=== PATIENT | male | born 1970 | race American Indian/Alaskan Native ===

== ENCOUNTER 2019-09-03 22:05 | Emergency (ER) | payer OTHER ==
[2019-09-03 23:19] VITALS: BP 187/102
[2019-09-03] MEDS ORDERED: traMADol 50 MG TAB PO ONE (23:29)
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
== END 2019-09-04 00:55 | disposition home or self-care (01) ==
LOC: ED 22:05
DX: S16.1XXA Strain of muscle, fascia and tendon at neck level, initial encounter (principal); I10 Essential (primary) hypertension; E11.9 Type 2 diabetes mellitus without complications; F17.200 Nicotine dependence, unspecified, uncomplicated; Z98.890 Other specified postprocedural states; Z88.8 Allergy status to other drugs, medicaments and biological substances; Z79.899 Other long term (current) drug therapy; V49.49XA Driver injured in collision with other motor vehicles in traffic accident, initial encounter; Y92.89 Other specified places as the place of occurrence of the external cause; Y93.89 Activity, other specified; Y99.8 Other external cause status
CPT/HCPCS: 72040; 99283

== ENCOUNTER 2020-08-29 20:12 | Emergency (ER) | payer OTHER ==
[2020-08-29 20:45] VITALS: BP 186/106
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
== END 2020-08-29 21:45 | disposition home or self-care (01) ==
LOC: ED 20:12
DX: S29.012A Strain of muscle and tendon of back wall of thorax, initial encounter (principal); S16.1XXA Strain of muscle, fascia and tendon at neck level, initial encounter; S00.03XA Contusion of scalp, initial encounter; I10 Essential (primary) hypertension; E11.9 Type 2 diabetes mellitus without complications; Z79.899 Other long term (current) drug therapy; Z88.8 Allergy status to other drugs, medicaments and biological substances; V49.49XA Driver injured in collision with other motor vehicles in traffic accident, initial encounter; Y93.89 Activity, other specified; Y92.488 Other paved roadways as the place of occurrence of the external cause; Y99.8 Other external cause status
CPT/HCPCS: 99281

== ENCOUNTER 2020-10-26 12:38 | Emergency (ER) | payer SELFPAY ==
[2020-10-26 13:11] VITALS: BP 198/106
[2020-10-26] MEDS ORDERED: KETOROLAC 60 MG/2 ML INJ IM ONE (13:27)
--- NOTE | 2020-10-26 14:32 | XRay Report ---
CERVICAL SPINE 3 VIEWS INDICATION / CLINICAL INFORMATION: neck pain. COMPARISON: 09/03/2019 FINDINGS: VERTEBRAE: No acute fracture. No significant malalignment. DISC SPACES / FACET JOINTS:Mild intervertebral disc space narrowing at C5-6 and C6-7 with moderate an terior osteophytosis. Findings are unchanged. Minimal facet degenerative changes are noted. PARASPINAL SOFT TISSUES:No significant abnormality. ADDITIONAL FINDINGS: None. Signer Name: Emmanuel Bravo MD Signed: 10/26/2020 2:27 PM Workstation Name: [id number]
--- NOTE | 2020-10-26 15:18 | Emergency Department Report ---
ED Neck Pain/Injury HPI - General Chief Complaint: Back Pain/Injury Stated Complaint: LT SIDE BACK/NECK PAIN Time Seen by Provider: 10/26/20 13:11 Mode of arrival: Ambulatory Limitations: No Limitations - History of Present Illness Initial Comments: This is a 50-year-old male nontoxic, well nourished in appearance, no acute signs of distress presents to the ED with c/o of acute on chronic upper back pain. Patient stated that the past few days he was mowing the lawn and developed pain. Patient stated has radiation to left upper extremity. Patient denies any trauma. Patient worse with movement and resolved with rest. Denies any swelling to arm. Denies any bladder or bowel instability. Patient denies any urinary symptoms. Denies any fever, chills, nausea, vomiting, headache, stiff neck, chest pain or shortness of breath. Patient denies any numbness or tingling. Denies any allergies. Stated past medical history of hypertension which he sees primary care doctor for. MD Complaint: upper back pain -: days(s) Place: street/outdoors Radiation: left upper extremity Severity: mild Severity scale (0 -10): 3 Quality: aching Consistency: intermittent Improves With: immobilization Worsens With: movement of extremity Associated Symptoms: none. denies: headache, fever, numbness, tingling, w eakness, vertigo, difficulty walking, swollen glands, difficulty swallowing, nausea, vomiting Treatments Prior to Arrival: none - Related Data Home Medications Medication Instructions Recorded Confirmed Last Taken lisinopriL [Lisinopril] 10 mg PO DAILY 07/14/14 11/07/14 11/06/14 09:00 Previous Rx's Medication Instructions Recorded Last Taken Type Clindamycin [Clindamycin CAP] 300 mg PO Q6H #28 capsule 11/07/14 Unknown Rx oxyCODONE /ACETAMINOPHEN [Percocet 1 tab PO Q4-6H PRN #25 tablet 11/07/14 Unknown Rx 5/325] predniSONE [Deltasone] 20 mg PO TID #12 tab 11/07/14 Unknown Rx Cyclobenzaprine [Flexeril] 10 mg PO TID PRN #15 tablet 12/04/15 Unknown Rx Ibuprofen [Motrin 800 MG tab] 800 mg PO Q8HR PRN #30 tablet 12/04/15 Unknown Rx Cyclobenzaprine [Flexeril] 10 mg PO BID PRN #20 tablet 09/04/19 Unknown Rx Methyl Salicylate/Menthol [[place] 1 applicatio TP QID PRN #1 tube 09/04/19 Unknown Rx [place] Active 16%-8% Gel] Naproxen 500 mg PO BID PRN #30 tablet 09/04/19 Unknown Rx Lidocaine [Lidoderm] 1 each TP BID #20 adh..patch 08/29/20 Unknown Rx Naproxen 500 mg PO BID #20 tablet 08/29/20 Unknown Rx Cyclobenzaprine [Flexeril] 10 mg PO QHS PRN #10 tablet 10/26/20 Unknown Rx Naproxen 500 mg PO Q12H PRN #12 tablet 10/26/20 Unknown Rx Allergies Allergy/AdvReac Type Severity Reaction Status Date / Time lactose Allergy Diarrhea Verified 10/26/20 13:10 ED Review of Systems ROS: Stated complaint: LT SIDE BACK/NECK PAIN Other details as noted in HPI Comment: All other systems reviewed and negative Constitutional: denies: chills, fever Eyes: denies: eye pain, eye discharge, vision change ENT: denies: ear pain, throat pain Respiratory: denies: cough, shortness of breath, wheezing Cardiovascular: denies: chest pain, palpitations Endocrine: no symptoms reported Gastrointestinal: denies: abdominal pain, nausea, diarrhea Genitourinary: denies: urgency, dysuria Musculoskeletal: denies: back pain, joint swelling, arthralgia Skin: denies: rash, lesions Neurological: denies: headache, weakness, paresthesias Psychiatric: denies: anxiety, depression Hematological/Lymphatic: denies: easy bleeding, easy bruising ED Past Medical Hx - Past Medical History Hx Hypertension: Yes Hx Diabetes: Yes - Surgical History Additional Surgical History: LEFT ANKLE - Social History Smoking Status: Current Every Day Smoker Substance Use Type: None - Medications Home Medications: Home Medications Medication Instructions Recorded Confirmed Last Taken Type lisinopriL [Lisinopril] 10 mg PO DAILY 07/14/14 11/07/14 11/06/14 09:00 History Clindamycin [Clindamycin CAP] 300 mg PO Q6H #28 capsule 11/07/14 Unknown Rx oxyCODONE /ACETAMINOPHEN [Percocet 1 tab PO Q4-6H PRN #25 tablet 11/07/14 Unknown Rx 5/325] predniSONE [Deltasone] 20 mg PO TID #12 tab 11/07/14 Unknown Rx Cyclobenzaprine [Flexeril] 10 mg PO TID PRN #15 tablet 12/04/15 Unknown Rx Ibuprofen [Motrin 800 MG tab] 800 mg PO Q8HR PRN #30 tablet 12/04/15 Unknown Rx Cyclobenzaprine [Flexeril] 10 mg PO BID PRN #20 tablet 09/04/19 Unknown Rx Methyl Salicylate/Menthol [[place] 1 applicatio TP QID PRN #1 tube 09/04/19 Unknown Rx [place] Active 16%-8% Gel] Naproxen 500 mg PO BID PRN #30 tablet 09/04/19 Unknown Rx Lidocaine [Lidoderm] 1 each TP BID #20 adh..patch 08/29/20 Unknown Rx Naproxen 500 mg PO BID #20 tablet 08/29/20 Unknown Rx Cyclobenzaprine [Flexeril] 10 mg PO QHS PRN #10 tablet 10/26/20 Unknown Rx Naproxen 500 mg PO Q12H PRN #12 tablet 10/26/20 Unknown Rx ED Physical Exam - General Limitations: No Limitations General appearance: alert, in no apparent distress - Head Head exam: Present: atraumatic, normocephalic - Eye Eye exam: Present: normal appearance - Neck Neck exam: Present: normal inspection, full ROM. Absent: tenderness, meningismus, lymphadenopathy - Respiratory Respiratory exam: Absent: respiratory distress - Cardiovascular Cardiovascular Exam: Present: regular rate - Extremities Exam Extremities exam: Present: normal inspection, full ROM, normal capillary refill. Absent: tenderness - Back Exam Back exam: Present: normal inspection, full ROM, tenderness, paraspinal tenderness (Cervical paraspinal). Absent: CVA tenderness (R), CVA tenderness (L), muscle spasm, vertebral tenderness, rash noted - Neurological Exam Neurological exam: Present: alert, oriented X3, normal gait - Psychiatric Psychiatric exam: Present: normal affect, normal mood - Skin Skin exam: Present: warm, dry, intact, normal color. Absent: rash - Other Other exam information: Neurovascular within normal limits. No swelling to upper extremity. ED Course Vital Signs 10/26/20 13:10 Temperature 98.2 F Pulse Rate 92 H Respiratory 14 Rate Blood Pressure 198/106 O2 Sat by Pulse 99 Oximetry - Reevaluation(s) Reevaluation #1: 10/26/20 15:19 Patient is speaking in full sentences with no signs of distress noted. ED Medical Decision Making - Radiology Data [facility] [address] [place] [address] XRay Report Signed Patient: WILDA JOSE R#: [id number] : 1970 Acct:[id number] Age/Sex: 50 / M ADM Date: 10/26/20 Loc: ED Attending Dr: Ordering Physician: HAI MAURICIO NP Date of Service: 10/26/20 Procedure(s): XR spine cervical 2-3V Accession Number(s): [id number] cc: HAI MAURICIO NP Fluoro Time In Minutes: CERVICAL SPINE 3 VIEWS INDICATION / CLINICAL INFORMATION: neck pain. COMPARISON: 09/03/2019 FINDINGS: VERTEBRAE: No acute fracture. No significant malalignment. DISC SPACES / FACET JOINTS:Mild intervertebral disc space narrowing at C5-6 and C6-7 with moderate anterior osteophytosis. Findings are unchanged. Minimal facet degenerative changes are noted. PARASPINAL SOFT TISSUES:No significant abnormality. ADDITIONAL FINDINGS: None. Signer Name: Dhaval Bravo MD Signed: 10/26/2020 2:27 PM Workstation Name: [id number] Transcribed By: Dictated By: DHAVAL BRAVO III Electronically Authenticated By: DHAVAL BRAVO III Signed Date/Time: 10/26/201426 DD/ 25 TD/TT: - Medical Decision Making This is a 50-year-old male that presents with upper back strain. Patient is s table was examined by me. There is no spinal tenderness. There is no cauda equina syndrome during examination. No bladder or bowel instability. Patient received Toradol 60 mg IM in the ED which stated that his symptoms has resolved and subsided. Patient is discharged with muscle relaxant and naproxen. Patient was instructed not to operate any machinery while taking muscle relaxant as they cause her drowsiness. Patient was referred to Follow-up with a primary care doctor in 3-5 days or if symptoms worsen and continue return to emergency room as soon as possible. At time of discharge, the patient does not seem toxic or ill in appearance. No acute signs of distress noted. Patient agrees to discharge treatment plan of care. No further questions noted by the patient. This chart is dictated with using [employer] Dictation Program Critical care attestation.: If time is entered above; I have spent that time in minutes in the direct care of this critically ill patient, excluding procedure time. ED Disposition Clinical Impression: Cervical muscle strain Qualifiers: Encounter type: initial encounter Qualified Code(s): S16.1XXA - Strain of muscle, fascia and tendon at neck level, initial encounter Degenerative arthritis of cervical spine Qualifiers: Spinal osteoarthritis complication: unspecified spinal osteoarthritis Qualified Code(s): M47.812 - Spondylosis without myelopathy or radiculopathy, cervical region Disposition: TO HOME OR SELFCARE Is pt being admited?: No Does the pt Need Aspirin: No Condition: Stable Instructions: RICE Therapy for Routine Care of Injuries, [id number], Muscle Strain, [id number], Cyclobenzaprine tablets Additional Instructions: Follow-up with your primary care doctor in 3-5 days or if symptoms worsen such as bladder or bowel stability, chest pain, short of breath, numbness or tingling sensation in extremities, headache, dizziness, visual changes, nausea vomiting, or abdominal pain, return back to emergency room as was possible. Take naproxen and Flexeril as prescribed. Do not operate heavy machinery while taking Flexeril due to sedation Prescriptions: Cyclobenzaprine [Flexeril] 10 mg PO QHS PRN #10 tablet PRN Reason: Muscle Spasm Naproxen 500 mg PO Q12H PRN #12 tablet PRN Reason: Pain , Severe (7-10) Referrals: PRIMARY MD FRANTZ [Primary Care Provider] - 3-5 Days YUSRA CARRIZALES MD [Staff Physician] - 3-5 Days Forms: Work/School Release Form(ED) Time of Disposition: 15:21
== END 2020-10-26 16:15 | disposition home or self-care (01) ==
LOC: ED 12:38
DX: S16.1XXA Strain of muscle, fascia and tendon at neck level, initial encounter (principal); M47.812 Spondylosis without myelopathy or radiculopathy, cervical region; M54.6 Pain in thoracic spine; G89.29 Other chronic pain; I10 Essential (primary) hypertension; E11.9 Type 2 diabetes mellitus without complications; F17.200 Nicotine dependence, unspecified, uncomplicated; Z98.890 Other specified postprocedural states; Z88.8 Allergy status to other drugs, medicaments and biological substances; Z79.899 Other long term (current) drug therapy; X58.XXXA Exposure to other specified factors, initial encounter; Y93.89 Activity, other specified; Y92.89 Other specified places as the place of occurrence of the external cause; Y99.8 Other external cause status
CPT/HCPCS: 72040; 96372; 99283; J1885

== ENCOUNTER 2020-11-11 16:37 | Emergency (ER) | payer SELFPAY ==
[2020-11-11] MEDS ORDERED: traMADol 50 MG TAB PO ONE (20:03)
[2020-11-11] MEDS ORDERED: KETOROLAC 60 MG/2 ML INJ IM ONE (20:03)
--- NOTE | 2020-11-11 20:08 | Emergency Department Report ---
ED General Adult HPI - General Chief complaint: Extremity Problem,Nontraumatic Stated complaint: SHARP PAIN IN LT ARM Time Seen by Provider: 11/11/20 19:54 Source: patient Mode of arrival: Ambulatory Limitations: No Limitations - History of Present Illness Initial comments: Patient is a 50-year-old male presents emergency room complaints of left-sided n ramona pain, left shoulder pain that radiates down to his left arm. He states occasionally he feels tingling in his left arm. Patient states that he is not able to lay on that side. He denies any fall or injury. He denies any complete numbness, weakness, fever, neck stiffness, headache, vision changes, speech disturbance, gait disturbance. He is amatory without difficulty. Patient was evaluated in the emergency department on 10/26/20 and had a x-ray cervical spine which showed: DISC SPACES / FACET JOINTS:Mild intervertebral disc space narrowing at C5-6 and C6-7 with moderate anterior osteophytosis. Findings are unchanged. Minimal facet degenerative changes are noted. Patient was given prescription for medications. He has not followed up with a primary care doctor or orthopedic doctor. Presents emergency room due to continued pain. Past medical history of diabetes and hypertension. No allergies to medications. - Related Data Home Medications Medication Instructions Recorded Confirmed Last Taken lisinopriL [Lisinopril] 10 mg PO DAILY 07/14/14 11/07/14 11/06/14 09:00 Previous Rx's Medication Instructions Recorded Last Taken Type Clindamycin [Clindamycin CAP] 300 mg PO Q6H #28 capsule 11/07/14 Unknown Rx oxyCODONE /ACETAMINOPHEN [Percocet 1 tab PO Q4-6H PRN #25 tablet 11/07/14 Unknown Rx 5/325] predniSONE [Deltasone] 20 mg PO TID #12 tab 11/07/14 Unknown Rx Cyclobenzaprine [Flexeril] 10 mg PO TID PRN #15 tablet 12/04/15 Unknown Rx Ibuprofen [Motrin 800 MG tab] 800 mg PO Q8HR PRN #30 tablet 12/04/15 Unknown Rx Cyclobenzaprine [Flexeril] 10 mg PO BID PRN #20 tablet 09/04/19 Unknown Rx Methyl Salicylate/Menthol [[place] 1 applicatio TP QID PRN #1 tube 09/04/19 Unknown Rx [place] Active 16%-8% Gel] Naproxen 500 mg PO BID PRN #30 tablet 09/04/19 Unknown Rx Lidocaine [Lidoderm] 1 each TP BID #20 adh..patch 08/29/20 Unknown Rx Naproxen 500 mg PO BID #20 tablet 08/29/20 Unknown Rx Cyclobenzaprine [Flexeril] 10 mg PO QHS PRN #10 tablet 10/26/20 Unknown Rx Naproxen 500 mg PO Q12H PRN #12 tablet 10/26/20 Unknown Rx Menthol/Camphor [[place] 1 applicatio TP BID #18 oint...g. 11/11/20 Unknown Rx Ointment] traMADoL [Ultram 50 MG tab] 50 mg PO Q6HR PRN #10 tablet 11/11/20 Unknown Rx Allergies Allergy/AdvReac Type Severity Reaction Status Date / Time lactose Allergy Diarrhea Verified 10/26/20 13:10 ED Review of Systems ROS: Stated complaint: SHARP PAIN IN LT ARM Other details as noted in HPI Comment: All other systems reviewed and negative ED Past Medical Hx - Past Medical History Previous Medical History?: Yes Hx Hypertension: Yes Hx Diabetes: Yes - Surgical History Past Surgical History?: Yes Additional Surgical History: LEFT ANKLE - Social History Smoking Status: Current Every Day Smoker Substance Use Type: None - Medications Home Medications: Home Medications Medication Instructions Recorded Confirmed Last Taken Type lisinopriL [Lisinopril] 10 mg PO DAILY 07/14/14 11/07/14 11/06/14 09:00 History Clindamycin [Clindamycin CAP] 300 mg PO Q6H #28 capsule 11/07/14 Unknown Rx oxyCODONE /ACETAMINOPHEN [Percocet 1 tab PO Q4-6H PRN #25 tablet 11/07/14 Unknown Rx 5/325] predniSONE [Deltasone] 20 mg PO TID #12 tab 11/07/14 Unknown Rx Cyclobenzaprine [Flexeril] 10 mg PO TID PRN #15 tablet 12/04/15 Unknown Rx Ibuprofen [Motrin 800 MG tab] 800 mg PO Q8HR PRN #30 tablet 12/04/15 Unknown Rx Cyclobenzaprine [Flexeril] 10 mg PO BID PRN #20 tablet 09/04/19 Unknown Rx Methyl Salicylate/Menthol [[place] 1 applicatio TP QID PRN #1 tube 09/04/19 Unknown Rx [place] Active 16%-8% Gel] Naproxen 500 mg PO BID PRN #30 tablet 09/04/19 Unknown Rx Lidocaine [Lidoderm] 1 each TP BID #20 adh..patch 08/29/20 Unknown Rx Naproxen 500 mg PO BID #20 tablet 08/29/20 Unknown Rx Cyclobenzaprine [Flexeril] 10 mg PO QHS PRN #10 tablet 10/26/20 Unknown Rx Naproxen 500 mg PO Q12H PRN #12 tablet 10/26/20 Unknown Rx Menthol/Camphor [[place] 1 applicatio TP BID #18 oint...g. 11/11/20 Unknown Rx Ointment] traMADoL [Ultram 50 MG tab] 50 mg PO Q6HR PRN #10 tablet 11/11/20 Unknown Rx ED Physical Exam - General Limitations: No Limitations General appearance: alert, in no apparent distress - Head Head exam: Present: atraumatic, normocephalic - Eye Eye exam: Present: normal appearance - ENT ENT exam: Present: mucous membranes moist - Neck Neck exam: Present: normal inspection, tenderness (left sided C-spine paraspinal muscular ttp, no midline C-spine ttp, no step offs, no deformities ), full ROM. Absent: meningismus - Respiratory Respiratory exam: Present: normal lung sounds bilaterally. Absent: respiratory distress, wheezes, rales, rhonchi, stridor, chest wall tenderness, accessory muscle use, decreased breath sounds, prolonged expiratory - Cardiovascular Cardiovascular Exam: Present: regular rate, normal rhythm, normal heart sounds. Absent: systolic murmur, diastolic murmur, rubs, gallop - Extremities Exam Extremities exam: Present: other (left sided trapezius ttp, no bony ttp of the LUE, FROM of the LUE, no sulcus sign, clavicles are equal, no clavicular ttp, no edema, no deformity, no skin changes, neurovascularly intact ) - Neurological Exam Neurological exam: Present: alert, oriented X3, CN II-XII intact, normal gait. Absent: motor sensory deficit - Psychiatric Psychiatric exam: Present: normal affect, normal mood - Skin Skin exam: Present: warm, dry, intact ED Course Vital Signs 11/11/20 11/11/20 18:02 20:45 Temperature 98.0 F Pulse Rate 86 88 Respiratory 20 17 Rate Blood Pressure 162/90 Blood Pressure 185/98 [Right] O2 Sat by Pulse 100 100 Oximetry ED Medical Decision Making - Medical Decision Making Patient is a 50-year-old male presents emergency room complaints of left-sided neck pain, left shoulder pain that radiates down to his left arm. He states occasionally he feels tingling in his left arm. Patient states that he is not able to lay on that side. He denies any fall or injury. He denies any complete numbness, weakness, fever, neck stiffness, headache, vision changes, speech disturbance, gait disturbance. He is amatory without difficulty. Patient was evaluated in the emergency department on 10/26/20 and had a x-ray cervical spine which showed: DISC SPACES / FACET JOINTS:Mild intervertebral disc space narrowing at C5-6 and C6-7 with moderate anterior osteophytosis. Findings are unchanged. Minimal facet degenerative changes are noted. Patient was given prescription for medications. He has not followed up with a primary care doctor or orthopedic doctor. Presents emergency room due to continued pain. Past medical history of diabetes and hypertension. No allergies to medications. Vitals are stable. On exam:left sided C-spine paraspinal muscular ttp, no midline C-spine ttp, no step offs, no deformities, left sided trapezius ttp, no bony ttp of the LUE, FROM of the LUE, no sulcus sign, clavicles are equal, no clavicular ttp, no edema, no deformity, no skin changes, neurovascularly intact, no focal neuro deficits. Symptoms likely related to cervical radiculopathy versus muscle strain versus shoulder impingement. Patient given medication while in the emergency department as he did not drive with improvement of symptoms. Patient given prescriptions. Discussed the importance of follow-up with patient. Discussed return precautions. Advised patient May alternate Tylenol or ibuprofen as needed for discomfort. May use [place] balm ointment. May use ice pack, heating pad, rest, epsom salt bath. Follow-up with your [facility] doctor. Follow-up with orthopedic/spine doctor. Return to emergency room for new or worsening symptoms. Critical care attestation.: If time is entered above; I have spent that time in minutes in the direct care of this critically ill patient, excluding procedure time. ED Disposition Clinical Impression: Left shoulder pain, Neck pain on left side, Paresthesia of left arm Disposition: DC-01 TO HOME OR SELFCARE Is pt being admited?: No Does the pt Need Aspirin: No Condition: Stable Instructions: Cervical Radiculopathy, Shoulder Impingement Syndrome Additional Instructions: May alternate Tylenol or ibuprofen as needed for discomfort. May use [place] balm ointment. May use ice pack, heating pad, rest, epsom salt bath. Follow-up with your primary care doctor. Follow-up with orthopedic/spine doctor. Return to emergency room for new or worsening symptoms. Prescriptions: Menthol/Camphor [[place] Ointment] 1 applicatio TP BID #18 oint...g. traMADoL [Ultram 50 MG tab] 50 mg PO Q6HR PRN #10 tablet PRN Reason: Pain , Severe (7-10) Referrals: [facility] [Provider Group] - 2-3 Days CHRISTINA VIRGEN II, MD [Staff Physician] - 2-3 Days YUSRA CARRIZALES MD [Staff Physician] - 2-3 Days [facility] [Provider Group] - 2-3 Days Forms: Work/School Release Form(ED) Time of Disposition: 20:12 Print Language: FRISIAN
[2020-11-11 22:34] VITALS: BP 185/98
== END 2020-11-11 20:45 | disposition home or self-care (01) ==
LOC: ED 16:37
DX: M25.512 Pain in left shoulder (principal); M54.2 Cervicalgia; R20.0 Anesthesia of skin; R20.2 Paresthesia of skin; I10 Essential (primary) hypertension; E11.9 Type 2 diabetes mellitus without complications; F17.200 Nicotine dependence, unspecified, uncomplicated; Z79.899 Other long term (current) drug therapy; Z88.8 Allergy status to other drugs, medicaments and biological substances
CPT/HCPCS: 96372; 99282; J1885

== ENCOUNTER 2021-07-02 16:32 | Emergency (ER) | payer SELFPAY ==
[2021-07-02] MEDS ORDERED: SODIUM CHLORIDE 0.9% 1000 ML 1,000 ML IV ONE (17:16)
[2021-07-02] MEDS ORDERED: ONDANSETRON 4 MG/2 ML INJ IV ONE (17:18)
--- NOTE | 2021-07-02 17:20 | Event Note ---
ED Screening Note ED Screening Note: 51 yo diabetic comes to ER with severe abd pain hunched over gagging htn on admit HR 90's did not check bg started Tuesday p eating out home rx metformin pmh obese diabetic htn This initial assessment/diagnostic orders/clinical plan/treatment(s) is/are subject to change based on patients health status, clinical progression and re- assessment by fellow clinical providers in the ED. Further treatment and workup at subsequent clinical providers discretion. Patient/guardian urged not to elope from the ED as their condition may be serious if not clinically assessed and managed. Initial orders include: ro atypical acs labs ua bg ordered fluids/zofran Vital Signs 07/02/21 16:56 Temperature 97.7 F Pulse Rate 92 H Respiratory 16 Rate Blood Pressure 183/122 [Left] O2 Sat by Pulse 98 Oximetry
[2021-07-02 18:10] LABS: Basophils % (Auto) 0.2 % (0.0-1.8); Eosinophils # (Auto) 0.1 K/mm3 (0.0-0.4); Eosinophils % (Auto) 1.8 % (0.0-4.3); Hematocrit 49.2 % (35.5-45.6); Hemoglobin 16.1 gm/dl (11.8-15.2); Lymphocytes # (Auto) 1.5 K/mm3 (1.2-5.4); Lymphocytes % (Auto) 33.7 % (13.4-35.0); Mean Corpuscular HGB Conc 33 % (32-34); Mean Corpuscular Volume 86 fl (84-94); Monocytes # (Auto) 0.5 K/mm3 (0.0-0.8); Monocytes % (Auto) 11.8 % (0.0-7.3); Platelet Count 291 K/mm3 (140-440); Red Blood Count 5.73 M/mm3 (3.65-5.03); Red Cell Distribution Width 13.6 % (13.2-15.2)
[2021-07-02 18:29] LABS: Alanine Aminotransferase 14 units/L (7-56); Albumin 3.9 g/dL (3.9-5); BUN/Creatinine Ratio 15; Blood Urea Nitrogen 16 mg/dL (9-20); Calcium 8.8 mg/dL (8.4-10.2); Hemolysis Index 14
[2021-07-02 18:33] LABS: Bilirubin,Direct < 0.2 mg/dL (0-0.2)
[2021-07-02] MEDS ORDERED: LACTATED RINGERS 1,000 ML IV ONE (18:34)
[2021-07-02] MEDS ORDERED: METOCLOPRAMIDE 10 MG/2 ML INJ IV ONE (18:34)
[2021-07-02 20:48] LABS: Bilirubin,Urine NEG (Negative); Blood,Urine NEG (Negative); Color,Urine Yellow (Yellow); Hyaline Casts,Urine 5 /LPF; Mucus,Urine FEW /HPF; Urobilinogen,Urine < 2.0 mg/dL (<2.0)
--- NOTE | 2021-07-02 21:18 | Emergency Department Report ---
ED Abdominal Pain HPI - General Chief Complaint: Abdominal Pain Stated Complaint: ABD PAIN/DIARRHEA Time Seen by Provider: 07/02/21 17:16 Source: patient Mode of arrival: Ambulatory Limitations: No Limitations - History of Present Illness Initial Comments: Patient presents with abdominal pain associate with nausea, vomiting, and diarrhea. Tuesday, he ate a chicken sandwich. He immediately became sick that night with nausea, vomiting, and diarrhea. He started having abdominal cramps. He states that Tuesday was slightly better. He was still having upset stomach. Today, his symptoms seem to worsen and the pain became more severe. It was centralized. It was sharp and stabbing and cramping. There is ongoing nausea. He states diarrhea has gotten better. He denies hematemesis or coffee-ground emesis. There is no melenic stool. He has had no sick contacts. He has not been on antibiotics. Patient denies travel out of the country. - Related Data Home Medications Medication Instructions Recorded Confirmed Last Taken lisinopriL [Lisinopril] 10 mg PO DAILY 07/14/14 11/07/14 11/06/14 09:00 Previous Rx's Medication Instructions Recorded Last Taken Type Hyoscyamine Subl [Levsin Sl 0.125 0.125 mg SL Q6HR PRN #20 tab 07/02/21 Unknown Rx TAB] Ondansetron [Zofran ODT TAB] 8 mg PO Q8HR PRN #15 tab.rapdis 07/02/21 Unknown Rx Allergies Allergy/AdvReac Type Severity Reaction Status Date / Time lactose Allergy Diarrhea Verified 10/26/20 13:10 ED Review of Systems ROS: Stated complaint: ABD PAIN/DIARRHEA Other details as noted in HPI Comment: All other systems reviewed and negative Constitutional: denies: fever Eyes: denies: vision change ENT: denies: epistaxis Respiratory: denies: cough Cardiovascular: denies: chest pain Endocrine: denies: unexplained weight loss Gastrointestinal: as per HPI Genitourinary: denies: dysuria Musculoskeletal: denies: back pain Skin: denies: rash Neurological: denies: headache Hematological/Lymphatic: denies: easy bruising ED Past Medical Hx - Past Medical History Hx Hypertension: Yes Hx Diabetes: Yes - Surgical History Additional Surgical History: LEFT ANKLE - Family History Family history: hypertension - Social History Smoking Status: Current Every Day Smoker (We discussed tobacco cessation) Substance Use Type: None - Medications Home Medications: Home Medications Medication Instructions Recorded Confirmed Last Taken Type lisinopriL [Lisinopril] 10 mg PO DAILY 07/14/14 11/07/14 11/06/14 09:00 History Hyoscyamine Subl [Levsin Sl 0.125 0.125 mg SL Q6HR PRN #20 tab 07/02/21 Unknown Rx TAB] Ondansetron [Zofran ODT TAB] 8 mg PO Q8HR PRN #15 tab.rapdis 07/02/21 Unknown Rx ED Physical Exam - General Limitations: No Limitations, Other (Socks noted and normal) General appearance: alert, in no apparent distress - Head Head exam: Present: atraumatic, normocephalic - Eye Eye exam: Present: normal appearance, EOMI. Absent: scleral icterus - ENT ENT exam: Present: mucous membranes dry, normal external ear exam - Neck Neck exam: Present: normal inspection. Absent: meningismus - Respiratory Respiratory exam: Present: normal lung sounds bilaterally. Absent: respiratory distress - Cardiovascular Cardiovascular Exam: Present: regular rate, normal rhythm - GI/Abdominal GI/Abdominal exam: Present: soft, tenderness (Mild periumbilical). Absent: distended, guarding, rebound, pulsatile mass - Extremities Exam Extremities exam: Present: normal capillary refill - Back Exam Back exam: Absent: CVA tenderness (R), CVA tenderness (L) - Neurological Exam Neurological exam: Present: alert, oriented X3, CN II-XII intact, normal gait. Absent: motor sensory deficit - Psychiatric Psychiatric exam: Present: normal affect, normal mood - Skin Skin exam: Present: warm, dry ED Course Vital Signs 07/02/21 16:56 Temperature 97.7 F Pulse Rate 92 H Respiratory 16 Rate Blood Pressure 183/122 [Left] O2 Sat by Pulse 98 Oximetry - Reevaluation(s) Reevaluation #1: 07/02/21 21:21 Labs are noted. Patient was discharged. ED Medical Decision Making - Lab Data Result diagrams: 07/02/21 17:20 07/02/21 17:20 - Medical Decision Making Patient presented with GI upset associate with abdominal pain. This started after eating a chicken sandwich. Clinically, there is no distention or tympany to suggest bowel obstruction. Has no peritoneal finding. There is no tenderness over McBurney's point to suggest appendicitis. He does not have tenderness in the right upper quadrant suggestive of biliary colic. There is no acute evidence of hepatitis or pancreatitis. He does not have intractable vomiting. He was treated symptomatically and discharged. There is no pulsatile mass noted suggestive of AAA. Critical Care Time: No Critical care attestation.: If time is entered above; I have spent that time in minutes in the direct care of this critically ill patient, excluding procedure time. ED Disposition Clinical Impression: Generalized abdominal pain, Nausea vomiting and diarrhea Disposition: HOME / SELF CARE / HOMELESS Is pt being admited?: No Condition: Stable Instructions: Nausea and Vomiting, Adult, Food Choices to Help Relieve Diarrhea, Adult, Abdominal Pain, Adult, Pain Without a Known Cause Additional Instructions: Have a bland diet. Drink plenty water. Return for problems. Follow-up with a regular doctor or your regular physician for recheck. Prescriptions: Hyoscyamine Subl [Levsin Sl 0.125 TAB] 0.125 mg SL Q6HR PRN #20 tab PRN Reason: cramps Ondansetron [Zofran ODT TAB] 8 mg PO Q8HR PRN #15 tab.rapdis PRN Reason: nasuea Referrals: PRIMARY CARE, [Primary Care Provider] - 3-5 Days DAMIEN LEE MD [Staff Physician] - 3-5 Days
[2021-07-02 21:32] VITALS: BP 140/86
== END 2021-07-02 21:31 | disposition home or self-care (01) ==
LOC: ED 16:32
DX: R10.84 Generalized abdominal pain (principal); R11.2 Nausea with vomiting, unspecified; R19.7 Diarrhea, unspecified; F17.200 Nicotine dependence, unspecified, uncomplicated; I10 Essential (primary) hypertension; E11.8 Type 2 diabetes mellitus with unspecified complications; Z91.011 Allergy to milk products
CPT/HCPCS: 36415; 80048; 80076; 81001; 82962; 83690; 84484; 85025; 96361; 96374; 96375; 99283; J2405; J7030; Q0162

== ENCOUNTER 2021-10-15 22:14 | Emergency (ER) | payer SELFPAY ==
[2021-10-16 01:23] VITALS: BP 181/104
--- NOTE | 2021-10-16 02:15 | XRay Report ---
LEFT HAND 3 VIEW(S) INDICATION / CLINICAL INFORMATION: left hand pain and swelling COMPARISON: None available. FINDINGS: BONES / JOINT(S): No acute fracture or subluxation. SOFT TISSUES: Mild soft tissue swelling is suggested along the extensor surface of the hand. ADDITIONAL FINDINGS: None. IMPRESSION: 1. No acute fracture. Soft tissue swelling along the extensor surface of the hand. No radiopaque fore ign bodies. Signer Name: Bernardino Mtz II, MD Signed: 10/16/2021 2:11 AM Workstation Name: [id number]
[2021-10-16] MEDS ORDERED: IBUPROFEN 600 MG TAB PO ONE (03:27)
[2021-10-16] MEDS ORDERED: oxyCODONE /ACETAMINOPHEN 5-325MG TAB PO ONE (03:27)
[2021-10-16] MEDS ORDERED: ONDANSETRON 4 MG ODT TAB PO ONE (03:27)
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
== END 2021-10-16 04:10 | disposition home or self-care (01) ==
LOC: ED 22:14
DX: S60.00XA Contusion of unspecified finger without damage to nail, initial encounter (principal); S63.8X2A Sprain of other part of left wrist and hand, initial encounter; I10 Essential (primary) hypertension; E11.9 Type 2 diabetes mellitus without complications; J45.909 Unspecified asthma, uncomplicated; Z91.09 Other allergy status, other than to drugs and biological substances; Z79.899 Other long term (current) drug therapy; F17.200 Nicotine dependence, unspecified, uncomplicated; Y04.0XXA Assault by unarmed brawl or fight, initial encounter; Y93.89 Activity, other specified; Y92.89 Other specified places as the place of occurrence of the external cause; Y99.8 Other external cause status
CPT/HCPCS: 99283

== ENCOUNTER 2021-12-03 10:11 | Emergency (ER) | payer SELFPAY ==
[2021-12-03] MEDS ORDERED: KETOROLAC 60 MG/2 ML INJ IM ONE (10:40)
[2021-12-03] MEDS ORDERED: CYCLOBENZAPRINE 10 MG TAB PO ONE (10:40)
[2021-12-03] MEDS ORDERED: predniSONE 20 MG TAB PO ONE (10:40)
--- NOTE | 2021-12-03 12:08 | XRay Report ---
LUMBAR SPINE 3 VIEWS 1126 INDICATION: back pain COMPARISON: 11/04/2015 unavailable currently FINDINGS: No fractures or subluxations. Disc spaces are maintained. No significant degenerative srinivasan es. Signer Name: Jimi Lizama MD Signed: 12/03/2021 12:04 PM Workstation Name: [id number]
--- NOTE | 2021-12-03 12:41 | Emergency Department Report ---
ED Back Pain/Injury HPI - General Chief Complaint: Back Pain/Injury Stated Complaint: LOWER BACK PAIN Time Seen by Provider: 12/03/21 10:36 Source: patient Limitations: No Limitations - History of Present Illness Initial Comments: This is a 51-year-old male nontoxic, well nourished in appearance, no acute signs of distress presents to the ED with c/o of acute on chronic lower back pain. Patient stated that the past day he was moving and developed this pain. Patient denies any radiation of pain. Patient denies any trauma. Denies any bladder or bowel instability. Patient denies any urinary symptoms. Denies any fever, chills, nausea, vomiting, headache, stiff neck, chest pain or shortness of breath. Patient denies any numbness or tingling. Denies any allergies. Arellano significant past medical history. Complaint: back pain -: days(s) Similar Symptoms Previously: Yes Place: work Severity: mild Severity scale (0 -10): 8 Quality: aching Consistency: constant Improves With: none Worsens With: none Context: while lifting, turning/twisting Associated Symptoms: denies other symptoms. denies: confusion, weakness, chest pain, numbness, difficulty walking, cough, difficulty urinating, diaphoresis, incontinence, fever/chills, constipation, headaches, abdominal pain, loss of appetite, malaise, nausea/vomiting, rash, seizure, shortness of breath, syncope - Related Data Home Medications Medication Instructions Recorded Confirmed Last Taken lisinopriL [Lisinopril] 10 mg PO DAILY 07/14/14 11/07/14 11/06/14 09:00 Previous Rx's Medication Instructions Recorded Last Taken Type Hyoscyamine Subl [Levsin Sl 0.125 0.125 mg SL Q6HR PRN #20 tab 07/02/21 Unknown Rx TAB] Ondansetron [Zofran ODT TAB] 8 mg PO Q8HR PRN #15 tab.rapdis 07/02/21 Unknown Rx Ibuprofen [Motrin] 800 mg PO Q8HR PRN #30 tablet 10/16/21 Unknown Rx Sulfamethoxazole/Trimethoprim 1 each PO Q12H #20 tab 10/16/21 Unknown Rx [Bactrim DS TAB] traMADoL [Ultram] 50 mg PO Q6HR PRN #12 tablet 10/16/21 Unknown Rx Cyclobenzaprine [Flexeril] 10 mg PO QHS PRN #10 tab 12/03/21 Unknown Rx Naproxen 500 mg PO Q12H PRN #12 tab 12/03/21 Unknown Rx Allergies Allergy/AdvReac Type Severity Reaction Status Date / Time lactose Allergy Diarrhea Verified 10/26/20 13:10 ED Review of Systems ROS: Stated complaint: LOWER BACK PAIN Other details as noted in HPI Comment: All other systems reviewed and negative Constitutional: denies: chills, fever Eyes: denies: eye pain, eye discharge, vision change ENT: denies: ear pain, throat pain Respiratory: denies: cough, shortness of breath, wheezing Cardiovascular: denies: chest pain, palpitations Endocrine: no symptoms reported Gastrointestinal: denies: abdominal pain, nausea, diarrhea Genitourinary: denies: urgency, dysuria Musculoskeletal: back pain. denies: joint swelling, arthralgia Skin: denies: rash, lesions Neurological: denies: headache, weakness, paresthesias Psychiatric: denies: anxiety, depression Hematological/Lymphatic: denies: easy bleeding, easy bruising ED Past Medical Hx - Past Medical History Hx Hypertension: Yes Hx Diabetes: Yes Hx Asthma: Yes - Surgical History Additional Surgical History: LEFT ANKLE - Social History Smoking Status: Never Smoker - Medications Home Medications: Home Medications Medication Instructions Recorded Confirmed Last Taken Type lisinopriL [Lisinopril] 10 mg PO DAILY 07/14/14 11/07/14 11/06/14 09:00 History Hyoscyamine Subl [Levsin Sl 0.125 0.125 mg SL Q6HR PRN #20 tab 07/02/21 Unknown Rx TAB] Ondansetron [Zofran ODT TAB] 8 mg PO Q8HR PRN #15 tab.rapdis 07/02/21 Unknown Rx Ibuprofen [Motrin] 800 mg PO Q8HR PRN #30 tablet 10/16/21 Unknown Rx Sulfamethoxazole/Trimethoprim 1 each PO Q12H #20 tab 10/16/21 Unknown Rx [Bactrim DS TAB] traMADoL [Ultram] 50 mg PO Q6HR PRN #12 tablet 10/16/21 Unknown Rx Cyclobenzaprine [Flexeril] 10 mg PO QHS PRN #10 tab 12/03/21 Unknown Rx Naproxen 500 mg PO Q12H PRN #12 tab 12/03/21 Unknown Rx ED Physical Exam - General Limitations: No Limitations General appearance: alert, in no apparent distress - Head Head exam: Present: atraumatic, normocephalic - Eye Eye exam: Present: normal appearance - Neck Neck exam: Present: normal inspection, full ROM. Absent: lymphadenopathy - Respiratory Respiratory exam: Absent: respiratory distress - Cardiovascular Cardiovascular Exam: Present: regular rate - Extremities Exam Extremities exam: Present: normal inspection, full ROM - Back Exam Back exam: Present: normal inspection, full ROM, paraspinal tenderness (lumbar paraspinal left side). Absent: tenderness, CVA tenderness (R), CVA tenderness (L), muscle spasm, vertebral tenderness, rash noted - Expanded Back Exam Expanded Back exam: Absent: saddle anesthesia Back exam: Negative Straight Leg Raising: Left, Right - Neurological Exam Neurological exam: Present: alert, oriented X3, normal gait - Psychiatric Psychiatric exam: Present: normal affect, normal mood - Skin Skin exam: Present: warm, dry, intact, normal color. Absent: rash ED Course Vital Signs 12/03/21 10:32 Temperature 98.3 F Pulse Rate 96 H Respiratory 18 Rate Blood Pressure 134/91 [Right] O2 Sat by Pulse 100 Oximetry - Reevaluation(s) Reevaluation #1: 12/03/21 12:40 Patient is speaking in full sentences with no signs of distress noted. ED Medical Decision Making - Radiology Data [facility] [address] [place] [address] XRay Report Signed Patient: WILDA JOSE#: [id number] : 1970 Acct:[id number] Age/Sex: 51 / M ADM Date: 12/03/21 Loc: ED Attending Dr: Ordering Physician: HAI MAURICIO NP Date of Service: 12/03/21 Procedure(s): XR spine lumbosacral 2-3V Accession Number(s): [id number] cc: HAI MAURICIO NP Fluoro Time In Minutes: LUMBAR SPINE 3 VIEWS 1126 INDICATION: back pain COMPARISON: 11/04/2015 unavailable currently FINDINGS: No fractures or subluxations. Disc spaces are maintained. No significant degenerative changes. Signer Name: Jimi Lizama MD Signed: 12/03/2021 12:04 PM Workstation Name: [id number] Transcribed By: JHON Dictated By: Jimi Lizama MD Electronically Authenticated By: Jimi Lizama MD Signed Date/Time: 12/03/21 1204 DD/ 1202 TD/TT: - Medical Decision Making This is a 51-year-old male that presents with low back strain. Patient is stable was examined by me. There is no spinal tenderness. There is no cauda equina syndrome during examination. No bladder or bowel instability. Patient received Toradol 60 mg IM, flxerl, and prednisone in the ED which stated that his symptoms has resolved and subsided. Patient is discharged with muscle relaxant and Motrin. Patient was instructed not to operate any machinery while taking muscle relaxant as they cause her drowsiness. Patient was referred to Follow-up with a primary care doctor in 3-5 days or if symptoms worsen and continue return to emergency room as soon as possible. At time of discharge, the patient does not seem toxic or ill in appearance. No acute signs of distress noted. Patient agrees to discharge treatment plan of care. No further questions noted by the patient. This chart is dictated with using [employer] Dictation Program Critical care attestation.: If time is entered above; I have spent that time in minutes in the direct care of this critically ill patient, excluding procedure time. ED Disposition Clinical Impression: Low back strain Qualifiers: Encounter type: initial encounter Qualified Code(s): S39.012A - Strain of muscl e, fascia and tendon of lower back, initial encounter Disposition: HOME / SELF CARE / HOMELESS Is pt being admited?: No Does the pt Need Aspirin: No Condition: Stable Instructions: Cyclobenzaprine tablets, Lumbosacral Strain Additional Instructions: Follow-up with your primary care doctor in 3-5 days or if symptoms worsen such as bladder or bowel stability, chest pain, short of breath, numbness or tingling sensation in extremities, headache, dizziness, visual changes, nausea vomiting, or abdominal pain, return back to emergency room as was possible. Take naproxen and Flexeril as prescribed. Do not operate heavy machinery while taking Flexeril due to sedation Prescriptions: Cyclobenzaprine [Flexeril] 10 mg PO QHS PRN #10 tab PRN Reason: Muscle Spasm Naproxen 500 mg PO Q12H PRN #12 tab PRN Reason: Pain , Severe (7-10) Referrals: YUSRA CARRIZALES MD [Primary Care Provider] - 3-5 Days PRIMARY CAREMD [Referring] - 3-5 Days Time of Disposition: 12:44
[2021-12-03 13:05] VITALS: BP 138/84
== END 2021-12-03 13:04 | disposition home or self-care (01) ==
LOC: ED 10:11
DX: S39.012A Strain of muscle, fascia and tendon of lower back, initial encounter (principal); J45.909 Unspecified asthma, uncomplicated; E11.9 Type 2 diabetes mellitus without complications; I10 Essential (primary) hypertension; X58.XXXA Exposure to other specified factors, initial encounter; Y93.89 Activity, other specified; Y92.89 Other specified places as the place of occurrence of the external cause; Y99.8 Other external cause status; Z88.8 Allergy status to other drugs, medicaments and biological substances
CPT/HCPCS: 72100; 96372; 99283; J1885